=== PATIENT | female | born 1980 | race American Indian/Alaskan Native ===

== ENCOUNTER 2017-01-08 15:04 | Inpatient (IN) | payer OTHER ==
[2017-01-08] MEDS ORDERED: DiphenhydrAMINE 50 mg/ml Inj IVP STA (15:14)
[2017-01-08] MEDS ORDERED: Sodium Chloride 0.9% 1,000 ML IV STA ×2 (15:14→23:52)
[2017-01-08 15:30] VITALS: BMI 37.8
--- NOTE | 2017-01-08 15:54 | ED PDOC ---
HPI: Abdomen Time Seen by Provider: 01/08/17 15:07 Chief Complaint (Nursing): Weakness/Neurological Deficit Chief Complaint (Provider): nausea and dizziness History Per: Patient History/Exam Limitations: no limitations Onset/Duration Of Symptoms: Hrs (started 7am), Gradual, Persistent Current Symptoms Are (Timing): Still Present Location Of Pain/Discomfort: RUQ, Epigastric Quality Of Discomfort: Aching Associated Symptoms: Chills, Nausea, Vomiting (x3 (in ER as well) nonbloody nonbilious). denies: Fever, Diarrhea, Urinary Symptoms Exacerbating Factors: None Alleviating Factors: None Additional Complaint(s): Nausea and abdominal pain since this morning, with 2 episodes of vomiting. Pain similar to when she was at [facility] and diagnosed with biliary colic. Scheduled appointment with Dr Shelby. Started to feel extremely lightheaded just prior to evaluation and thought she may pass out. Then had more vomiting in ER. Reports that sometimes her migraines feel like this as well (dizziness and nausea.) Also reports that she has anemia and on first day of menses, which may also be contributing factor. Past Medical History Reviewed: Historical Data, Nursing Documentation, Vital Signs Vital Signs: Last Vital Signs Temp 98.4 F 01/10/17 12:00 Pulse 69 01/10/17 12:00 Resp 18 01/10/17 12:00 BP 128/80 01/10/17 12:00 Pulse Ox 99 01/10/17 12:00 - Medical History PMH: Anemia, Gall Bladder Disease, Seizures (in childhood) - Surgical History Surgical History: No Surg Hx - Family History Family History: States: No Known Family Hx - Social History Current smoker - smoking cessation education provided: No - Home Medications Home Medications: Ambulatory Orders Medication Instructions Recorded No Known Home Med 01/09/17 - Allergies Allergies/Adverse Reactions: Allergies Allergy/AdvReac Type Severity Reaction Status Date / Time Penicillins Allergy Verified 01/08/17 15:13 Review of Systems ROS Statement: Except As Marked, All Systems Reviewed And Found Negative (and as per HPI) Constitutional: Positive for: Weakness (generalized), Malaise Cardiovascular: Positive for: Light Headedness. Negative for: Chest Pain Gastrointestinal: Positive for: Nausea, Vomiting, Abdominal Pain. Negative for : Diarrhea, Constipation, Melena, Hematochezia, Hematemesis Neurological: Positive for: Dizziness. Negative for: Weakness (focal), Numbness , Headache Physical Exam - Reviewed Nursing Documentation Reviewed: Yes Vital Signs Reviewed: Yes - Physical Exam Appears: Positive for: Non-toxic, In Acute Distress Head Exam: Positive for: ATRAUMATIC, NORMOCEPHALIC Skin: Positive for: Warm, Dry Eye Exam: Positive for: EOMI, PERRL ENT: Negative for: Pharyngeal Erythema, Tonsillar Exudate Neck: Positive for: Painless ROM, Supple Cardiovascular/Chest: Positive for: Regular Rate, Rhythm, Chest Non Tender. Negative for: Murmur Respiratory: Positive for: Normal Breath Sounds. Negative for: Respiratory Distress Gastrointestinal/Abdominal: Positive for: Bowel Sounds, Soft, Tenderness (BUQ). Negative for: Mass, Distended, Guarding, Rebound Back: Positive for: Normal Inspection. Negative for: Decreased ROM Extremity: Positive for: Normal ROM. Negative for: Deformity Lymphatic: Negative for: Adenopathy Neurologic/Psych: Positive for: Alert. Negative for: Motor/Sensory Deficits - Laboratory Results Result Diagrams: 01/09/17 04:20 01/09/17 04:20 - ECG ECG: Positive for: Interpreted By Me ECG Rhythm: Positive for: Normal QRS, Normal ST Segment, Sinus Rhythm - Progress ED Course And Treament: Accession No. : [id number] Patient Name / ID : HALEY SINGH / [id number] Exam Date : 01/08/2017 15:49:02 ( Approved ) Study Comment : Sex / Age : F / 36Y Creator : Chuck Lepe MD Dictator : Chuck Lepe MD Carbon Lamp Cleaner : Piece Cutter : Chuck Lepe MD Approver2 : Report Date : 01/08/2017 16:29:34 My Comment : HISTORY: abd pain h.o cholelithiasis r/o cholecystitis COMPARISON: None. TECHNIQUE: Sonographic evaluation of the abdomen. FINDINGS: LIVER: Measures 17.1 cm. Slightly diffusely increased echogenicity of the liver parenchyma. Consistent with fatty infiltration. No mass. No biliary dilatation. Smooth contour. GALLBLADDER: Cholelithiasis. Minimal mural thickening to 3 mm. No pericholecystic fluid. Negative sonographic Villagomez sign. COMMON BILE DUCT: Measures 4 mm. No stones. No dilatation. PANCREAS: Poorly visualized RIGHT KIDNEY: Measures 12.7cm. Normal echogenicity. No calculus, mass, or hydronephrosis. LEFT KIDNEY: Measures 9.8cm. Normal echogenicity. No calculus, mass, or hydronephrosis. SPLEEN: Normal in size and contour. No mass. AORTA: No evidence of aneurysm. Proximal aorta poorly visualized due to overlying bowel gas. IVC: Unremarkable. OTHER FINDINGS: None. IMPRESSION: Cholelithiasis without sonographic evidence of cholecystitis. Mild fatty infiltration of the liver. Multiple evaluations over the course of 8 hours in ER and pt's symptoms persist despite observation here and IVF. DW Dr Sandhu for hospitalization for intractable dizziness and near syncope Condition: Improving,but remains with symptoms (pain improved but still feels nauseous and vomited again in ER. Zofran and pepcid ordered.) Disposition - Clinical Impression Clinical Impression: Hypokalemia, Near syncope - Disposition Disposition Time: 23:00 Condition: FAIR - Pt Status Changed To: Hospital Disposition Of: Observation - POA Present On Arrival: None
[2017-01-08 16:18] LABS: BASO % 0.5 % (0.0-2.0); EOS # 0.1 K/uL (0.0-0.7); EOS % 1.2 % (0.0-4.0); HEMATOCRIT 36.4 % (34.0-47.0); LYMPH % 36.2 % (20.0-40.0); MEAN CELL VOLUME 84.2 fl (81.0-99.0); MEAN CORPUSCULAR HEMOGLOBIN 27.9 pg (27.0-31.0); MEAN CORPUSCULAR HGB CONC 33.1 g/dL (33.0-37.0); MEAN PLATELET VOLUME 8.3 fl (7.2-11.7); MONO # 0.7 K/uL (0.0-0.8); NEUT # 4.4 K/uL (1.8-7.0); NEUT % 53.1 % (50.0-75.0); WHITE BLOOD COUNT 8.3 K/uL (4.8-10.8)
[2017-01-08 16:19] LABS: ALB/GLOB RATIO 1.1 (1.0-2.1); ALKALINE PHOSPHATASE 106 U/L (38-126); ALT/SGPT 28 U/L (9-52); AST/SGOT 28 U/L (14-36); BILIRUBIN,TOTAL 0.5 mg/dl (0.2-1.3); BLOOD UREA NITROGEN 11 mg/dl (7-17); CALCIUM 8.5 mg/dL (8.4-10.2); CARBON DIOXIDE 25 mmol/L (22-30); CHLORIDE 104 mmol/L (98-107); GFR AFRICAN-AMERICAN > 60; GLUCOSE,RANDOM 105 mg/dL (65-105); LIPASE 45 U/L (23-300); MAGNESIUM 1.7 MG/DL (1.6-2.3); PHOSPHOROUS 3.5 mg/dl (2.5-4.5); SODIUM 141 mmol/l (132-148); TOTAL PROTEIN 8.5 G/DL (6.3-8.2)
[2017-01-08 16:22] LABS: POTASSIUM 3.3 MMOL/L (3.6-5.0)
[2017-01-08 16:24] LABS: PARTIAL THROMBOPLASTIN TIME 34.2 Seconds (25.6-37.1)
--- NOTE | 2017-01-08 16:31 | US ---
HISTORY: abd pain h.o cholelithiasis r/o cholecystitis COMPARISON: None. TECHNIQUE: Sonographic evaluation of the abdomen. FINDINGS: LIVER: Measures 17.1 cm. Slightly diffusely increased echogenicity of the liver parenchyma. Consistent with fatty infiltration. No mass. No biliary dilatation. Smooth contour. GALLBLADDER: Cholelithiasis. Minimal mural thickening to 3 mm. No pericholecystic fluid. Negative sonographic Villagomez sign. COMMON BILE DUCT: Measures 4 mm. No stones. No dilatation. PANCREAS: Poorly visualized RIGHT KIDNEY: Measures 12.7cm. Normal echogenicity. No calculus, mass, or hydronephrosis. LEFT KIDNEY: Measures 9.8cm. Normal echogenicity. No calculus, mass, or hydronephrosis. SPLEEN: Normal in size and contour. No mass. AORTA: No evidence of aneurysm. Proximal aorta poorly visualized due to overlying bowel gas. IVC: Unremarkable. OTHER FINDINGS: None. IMPRESSION: Cholelithiasis without sonographic evidence of cholecystitis. Mild fatty infiltration of the liver.
[2017-01-08] MEDS ORDERED: K-Lyte 25meq EF Tab PO ONE ×2 (16:43→17:56)
[2017-01-08] MEDS ORDERED: DiphenhydrAMINE 50 mg/ml Inj ONE (16:48)
[2017-01-08 16:54] LABS: RBC URINE 114 /hpf (0-3); URINE BILIRUBIN NEGATIVE (NEGATIVE); URINE BLOOD LARGE (NEGATIVE); URINE COLOR YELLOW (YELLOW); URINE GLUCOSE (UA) NEG (Normal); URINE KETONE NEGATIVE (NEGATIVE); URINE LEUKOCYTE ESTERASE NEG Leu/uL (Negative); URINE PROTEIN 100 mg/dL (NEGATIVE); URINE UROBILINOGEN 0.2-1.0 mg/dL (0.2-1.0); WBC URINE 3 /hpf (0-5)
[2017-01-08] MEDS: Dextrose 5%/Lactated Ringer's 1,000 ML IV SCH (19:25)
[2017-01-08] MEDS ORDERED: Potassium Chl 20 mEq in NS 1,000 ML IV STA (23:56)
[2017-01-09] MEDS: Potassium Chl 20 mEq in NS 1,000 ML IV SCH ×2 (04:05→16:22)
[2017-01-09 05:46] LABS: HEMATOCRIT 35.9 % (34.0-47.0); MEAN CELL VOLUME 83.5 fl (81.0-99.0); MEAN CORPUSCULAR HEMOGLOBIN 27.8 pg (27.0-31.0); MEAN CORPUSCULAR HGB CONC 33.3 g/dL (33.0-37.0); RED CELL DISTRIBUTION WIDTH 12.9 % (11.5-14.5); WHITE BLOOD COUNT 11.4 K/uL (4.8-10.8)
[2017-01-09 05:59] LABS: BLOOD UREA NITROGEN 8 mg/dl (7-17); CALCIUM 8.4 mg/dL (8.4-10.2); CARBON DIOXIDE 26 mmol/L (22-30); CHLORIDE 103 mmol/L (98-107); GFR AFRICAN-AMERICAN > 60; GLUCOSE,RANDOM 109 mg/dL (65-105); POTASSIUM 3.7 MMOL/L (3.6-5.0); SODIUM 138 mmol/l (132-148)
--- NOTE | 2017-01-09 10:12 | US ---
PROCEDURE: Duplex ultrasound of the carotid and vertebral arteries. HISTORY: Near Syncope COMPARISON: None available. TECHNIQUE: Grayscale and duplex Doppler evaluation of the cervical carotid and vertebral arteries were performed. The common carotid, carotid bifurcations and cervical ICA and proximal ECA were evaluated. The vertebral arteries were evaluated for gross patency and direction. FINDINGS: There is bilateral intimal thickening. RIGHT CAROTID ARTERIES: Common Carotid Artery: Normal. Maximal flow velocity of 87.3 cm/s. Carotid Bifurcation: Normal. Internal Carotid Artery:Normal. Maximal flow velocity of 101.6 cm/s. External Carotid Artery (proximal branches): Normal. Maximal flow velocity of 98.4 cm/s. ICA/CCA Ratio: 1.2 LEFT CAROTID ARTERIES: Common Carotid Artery: Normal. Maximal flow velocity of 125.3 cm/s. Carotid Bifurcation: Normal. Internal Carotid Artery:Normal. Maximal flow velocity of 79.5 cm/s. External Carotid Artery (proximal branches): Normal. Maximal flow velocity of 79.8 cm/s. ICA/CCA Ratio: 0.6 VERTEBRAL ARTERIES: Right Vertebral Artery: Patent. Antegrade flow. Left Vertebral Artery: Patent. Antegrade flow. OTHER FINDINGS: None. IMPRESSION: No evidence of hemodynamically significant stenosis by peak systolic velocity criteria.
--- NOTE | 2017-01-09 10:59 | CARD ---
APPROVED REPORT EKG Measurement Heart [id number] <Conclusion> Normal sinus rhythm Normal ECG
--- NOTE | 2017-01-09 15:11 | CT ---
PROCEDURE: CT HEAD WITHOUT CONTRAST. HISTORY: Syncope COMPARISON: None available. TECHNIQUE: Axial computed tomography images were obtained through the head/brain without intravenous contrast. Radiation dose: Total exam DLP = 873.30 mGy-cm. This CT exam was performed using one or more of the following dose reduction techniques: Automated exposure control, adjustment of the mA and/or kV according to patient size, and/or use of iterative reconstruction technique. FINDINGS: HEMORRHAGE: No intracranial hemorrhage. BRAIN: Avila-white matter differentiation is preserved. There is no mass, mass effect or abnormal extra-axial fluid collection. There is no territorial infarction. VENTRICLES: The ventricles are normal in size, shape and configuration. CALVARIUM: The skull base and calvarium are normal. PARANASAL SINUSES: Predominantly clear. MASTOID AIR CELLS: Predominantly clear. OTHER FINDINGS: None. IMPRESSION: No acute intracranial abnormality.
[2017-01-09] MEDS: Dextrose 5%/Lactated Ringer's 1,000 ML IV SCH (16:21)
--- NOTE | 2017-01-09 19:57 | HP ---
HISTORY OF PRESENT ILLNESS: Ms. Estrada is a 36-year-old female who was admitted via the emergency room because of an episode of dizziness, feeling like she was going to pass out, associated with nausea, vomiting x2 episodes. She was admitted to the telemetry for workup and therapy. She had similar episode at [facility] in [place] recently and had workup which included MRI of the brain which she said was nonrevealing. PAST MEDICAL HISTORY: She also has a past medical history of seizures in the past but is on no medications for it, and has recurrent migraine headaches; also has biliary colic and is scheduled to follow up with Dr. Shelby for cholecystectomy. FAMILY HISTORY: Remarkable for grandparents having heart disease. 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 PHYSICAL EXAMINATION: GENERAL: The patient is alert and oriented. VITAL SIGNS: Blood pressure 148/93 with a pulse of 74, respiratory rate 16. She is afebrile. O2 sat 100% on room air. SKIN: Shows fair turgor. HEENT: Pupils equal, reactive to light and accommodation. Mouth shows fair hygiene. JVP flat. LUNGS: Clear. HEART: Regular. ABDOMEN: Soft, nontender, no organomegaly. EXTREMITIES: Show no edema or cyanosis. CENTRAL NERVOUS SYSTEM: The patient indicates that she no longer has dizziness or headaches, and feels much better with IV hydration. LABORATORY DATA: Remarkable for WBC of 8.3, hemoglobin 12.0, platelet count of 296,000. Sodium 141; potassium 3.3, corrected to 3.7; BUN of 11; creatinine 0.7; lipase 45. DIAGNOSTIC STUDIES: CAT scan of the brain is pending. Ultrasound of the abdomen is remarkable for gallstones. IMPRESSION: Near syncopal episode with dizziness, questionable etiology, nausea, vomiting, probably secondary to gallbladder disease. PLAN: Neurology evaluation. IV hydration. If cleared by Neurology, we would discharge the patient and have her follow up as an outpatient. Hardik Sandhu MD
--- NOTE | 2017-01-09 20:48 | CP.PCM.CON ---
History of Present Illness - History of Present Illness History of Present Illness: Chief Complaint (Nursing): Weakness/Neurological Deficit Chief Complaint (Provider): nausea and dizziness History Per: Patient History/Exam Limitations: no limitations Onset/Duration Of Symptoms: Hrs (started 7am), Gradual, Persistent Current Symptoms Are (Timing): Still Present Location Of Pain/Discomfort: RUQ, Epigastric Quality Of Discomfort: Aching Associated Symptoms: Chills, Nausea, Vomiting (x3 (in ER as well) nonbloody nonbilious). denies: Fever, Diarrhea, Urinary Symptoms Exacerbating Factors: None Alleviating Factors: None Additional Complaint(s): Today she was feeling migraine headache, abdominal pain, she was about to faint. Nausea and abdominal pain since this morning, with 2 episodes of vomiting. Pain similar to when she was at [facility] and diagnosed with biliary colic. Scheduled appointment with Dr Shelby. Started to feel extremely lightheaded just prior to evaluation and thought she may pass out. Then had more vomiting in ER. Reports that sometimes her migraines feel like this as well (dizziness and nausea.) Also reports that she has anemia and on first day of menses, which may also be contributing factor. History of recurrent migraine, history of feeling about to faint, which looks like a near syncopal spell. Location Of Pain/Discomfort: RUQ, Epigastric Quality Of Discomfort: Aching Associated Symptoms: Chills, Nausea, Vomiting (x3 (in ER as well) nonbloody nonbilious). denies: Fever, Diarrhea, Urinary Symptoms Exacerbating Factors: None Alleviating Factors: None Additional Complaint(s): She has migraine headache 3 to 4 times in a month, each lasts for 4 hours up to the whole day and night. Her headache is throbbing occurring at the frontal area, mainly at the left eye brow. It is relieved by sleep and rest in a dark quiet room and analgesics. Her 1st seizure was at the age of 3 years and the last seizure was at the age of 11 and she was treated by Tegretol. There is history of a head trauma that caused her LOC that preceded her seizures. Seizures were preceded with an aura of feeling hot. they consisted of LOC, LOP, duration 1 minute, post ictally sleepy for a while. Past Medical History Reviewed: Historical Data, Nursing Documentation, Vital Signs Vital Signs: Last Vital Signs Temp Pulse 74 10/30/17 15:10 Resp 16 01/08/17 15:10 BP 148/93 H 01/08/17 15:10 Pulse Ox 100 01/08/17 15:10 Medical History PMH: Anemia, Gall Bladder Disease, Seizures (in childhood), Migraine headache - Surgical History Surgical History: No Surg Hx - Family History Family History: States: Migraine Headache, seizures, cardiac problems, CVA. - Social History Current smoker - smoking cessation education provided: No - Allergies Allergies/Adverse Reactions: Allergies Allergy/AdvReac Type Severity Reaction Status Date / Time Penicillins Allergy Verified 01/08/17 15:13 Review of Systems ROS Statement: Except As Marked, All Systems Reviewed And Found Negative (and as per HPI) Constitutional: Positive for: Weakness (generalized), Malaise Cardiovascular: Positive for: Light Headedness. Negative for: Chest Pain Gastrointestinal: Positive for: Nausea, Vomiting, Abdominal Pain. Negative for : Diarrhea, Constipation, Melena, Hematochezia, Hematemesis Neurological: Positive for: Dizziness. Negative for: Weakness (focal), Numbness , Headache Physical Exam - Reviewed Nursing Documentation Reviewed: Yes Vital Signs Reviewed: Yes - Physical Exam Appears: Positive for: Non-toxic, In Acute Distress Head Exam: Positive for: ATRAUMATIC, NORMOCEPHALIC Skin: Positive for: Warm, Dry Eye Exam: Positive for: EOMI, PERRL ENT: Negative for: Pharyngeal Erythema, Tonsillar Exudate Neck: Positive for: Painless ROM, Supple Cardiovascular/Chest: Positive for: Regular Rate, Rhythm, Chest Non Tender. Negative for: Murmur Respiratory: Positive for: Normal Breath Sounds. Negative for: Respiratory Distress Gastrointestinal/Abdominal: Positive for: Bowel Sounds, Soft, Tenderness (BUQ). Negative for: Mass, Distended, Guarding, Rebound Back: Positive for: Normal Inspection. Negative for: Decreased ROM Extremity: Positive for: Normal ROM. Negative for: Deformity Lymphatic: Negative for: Adenopathy Neurologic/Psych: Positive for: Alert. Negative for: Motor/Sensory Deficits ECG Rhythm: Positive for: Normal QRS, Normal ST Segment, Sinus Rhythm - Progress ED Course And Treament: IMPRESSION of US Abdomen: Cholelithiasis without sonographic evidence of cholecystitis. Mild fatty infiltration of the liver. IMPRESSION of CT Brain: No acute intracranial abnormality. Negative Carotid Doppler Vitamin D level is very low 13.3 high Urine RBCs 114 Past Patient History - Past Medical History & Family History Past Medical History?: No - Past Social History Smoking Status: Never Smoked - CARDIAC Hx Cardiac Disorders: No - PULMONARY Hx Respiratory Disorders: No - NEUROLOGICAL Hx Neurological Disorder: Yes Hx Parkinson's Disease: Yes - HEENT Hx HEENT Problems: No - RENAL Hx Chronic Kidney Disease: No - ENDOCRINE/METABOLIC Hx Endocrine Disorders: No - HEMATOLOGICAL/ONCOLOGICAL Hx Blood Disorders: Yes Hx AIDS: No Hx Anemia: Yes Hx Human Immunodeficiency Virus (HIV): No - INTEGUMENTARY Hx Dermatological Problems: No - MUSCULOSKELETAL/RHEUMATOLOGICAL Hx Musculoskeletal Disorders: No Hx Falls: No - GASTROINTESTINAL Hx Gastrointestinal Disorders: Yes Hx Gall Bladder Disease: Yes - GENITOURINARY/GYNECOLOGICAL Hx Genitourinary Disorders: No - PSYCHIATRIC Hx Psychophysiologic Disorder: No Hx Substance Use: No - SURGICAL HISTORY Hx Surgeries: No - ANESTHESIA Hx Anesthesia: No Meds Allergies/Adverse Reactions: Allergies Allergy/AdvReac Type Severity Reaction Status Date / Time Penicillins Allergy Verified 01/08/17 15:13 - Medications Medications: Current Medications Acetaminophen (Tylenol 325mg Tab) 650 mg PO Q4 PRN PRN Reason: Headache Last Admin: 01/09/17 16:20 Dose: 650 mg Physical Exam - Neurological Exam Additional comments: Overweight to Obese, very pleasant to talk to, 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 She has migraine headache 3 to 4 times in a month, each lasts for 4 hours up to the whole day and night. Her headache is throbbing occurring at the frontal area, mainly at the left eye brow. It is relieved by sleep and rest in a dark quiet room and analgesics. Her 1st seizure was at the age of 3 years and the last seizure was at the age of 11 and she was treated by Tegretol. There is history of a head trauma that caused her LOC that preceded her seizures. Seizures were preceded with an aura of feeling hot. they consisted of LOC, LOP, duration 1 minute, post ictally sleepy for a while. Mental status: Normal cognition, awake, alert, oriented X 3 Normal memory X 3, fluent coherent speech Cranial Nerves II to XII: No deficits Motor: Normal tone, power, muscle bulk DTR 0 to 1/4 toes are down going by plantar stimulation. Sensory: No deficits Cerebellar: Normal FNT, HST Results - Vital Signs Recent Vital Signs: Last Vital Signs Temp 98.7 F 01/09/17 20:13 Pulse 77 01/09/17 20:13 Resp 14 01/09/17 20:13 BP 127/81 01/09/17 20:13 Pulse Ox 97 01/09/17 20:13 - Labs Result Diagrams: 01/09/17 04:20 01/09/17 04:20 Labs: Laboratory Results - last 24 hr 01/09/17 01/09/17 01/09/17 04:20 04:20 07:30 WBC 11.4 H RBC 4.30 Hgb 11.9 L Hct 35.9 MCV 83.5 MCH 27.8 MCHC 33.3 RDW 12.9 Plt Count 341 Sodium 138 Potassium 3.7 Chloride 103 Carbon Dioxide 26 Anion Gap 12 BUN 8 Creatinine 0.6 L Est GFR ( Amer) > 60 Est GFR (Non-Af Amer) > 60 Random Glucose 109 H Calcium 8.4 25-OH Vitamin D Total Blood Type Confirm O POSITIVE 01/09/17 10:19 WBC RBC Hgb Hct MCV MCH MCHC RDW Plt Count Sodium Potassium Chloride Carbon Dioxide Anion Gap BUN Creatinine Est GFR ( Amer) Est GFR (Non-Af Amer) Random Glucose Calcium 25-OH Vitamin D Total 13.3 L Blood Type Confirm Assessment & Plan (1) Seizures Assessment and Plan: Old History of seizures not receiving treatment for it since many years Near syncopal spell Status: Acute (2) Hypokalemia Status: Acute (3) Hematuria Assessment and Plan: She has her period now Status: Acute (4) Cholecystitis with cholelithiasis Status: Acute (5) Vitamin D deficiency Status: Acute (6) Near syncope Assessment and Plan: With Abdominal discomfort and gall bladder stone, R/O Vasovagal spell. Status: Acute (7) Vaso vagal episode Assessment and Plan: R/O Vasovagal episode, as she has abdominal pain and discomfort and gall bladder stones. Status: Acute (8) Migraine Assessment and Plan: Headache precautions Status: Acute
[2017-01-09] MEDS ORDERED: Ergocalciferol 50,000 Intl Units Cap PO SCH (22:15)
[2017-01-10 05:24] VITALS: TEMP 98.4
[2017-01-10 08:02] VITALS: RESP 18
--- NOTE | 2017-01-10 09:43 | CP.PCM.DIS ---
Provider - Provider Date of Admission: 01/09/17 20:12 Attending physician: Hardik Sandhu MD Time Spent in preparation of Discharge (in minutes): 30 Diagnosis - Discharge Diagnosis (1) Cholecystitis with cholelithiasis Status: Acute (2) Hypokalemia Status: Acute (3) Migraine Status: Acute (4) Near syncope Status: Acute (5) Seizures Status: Acute (6) Vaso vagal episode Status: Acute (7) Vitamin D deficiency Status: Acute Hospital Course - Lab Results Lab Results: Most Recent Lab Values WBC 11.4 K/uL (4.8-10.8) H 01/09/17 04:20 RBC 4.30 Mil/uL (3.80-5.20) 01/09/17 04:20 Hgb 11.9 g/dL (12.0-16.0) L 01/09/17 04:20 Hct 35.9 % (34.0-47.0) 01/09/17 04:20 MCV 83.5 fl (81.0-99.0) 01/09/17 04:20 MCH 27.8 pg (27.0-31.0) 01/09/17 04:20 MCHC 33.3 g/dL (33.0-37.0) 01/09/17 04:20 RDW 12.9 % (11.5-14.5) 01/09/17 04:20 Plt Count 341 K/uL (130-400) 01/09/17 04:20 MPV 8.3 fl (7.2-11.7) 01/08/17 15:35 Neut % (Auto) 53.1 % (50.0-75.0) 01/08/17 15:35 Lymph % (Auto) 36.2 % (20.0-40.0) 01/08/17 15:35 [place] % (Auto) 9.0 % (0.0-10.0) 01/08/17 15:35 Eos % (Auto) 1.2 % (0.0-4.0) 01/08/17 15:35 Baso % (Auto) 0.5 % (0.0-2.0) 01/08/17 15:35 Neut # 4.4 K/uL (1.8-7.0) 01/08/17 15:35 Lymph # 3.0 K/uL (1.0-4.3) 01/08/17 15:35 [place]ye # 0.7 K/uL (0.0-0.8) 01/08/17 15:35 Eos # 0.1 K/uL (0.0-0.7) 01/08/17 15:35 Baso # 0.0 K/uL (0.0-0.2) 01/08/17 15:35 PT 12.2 Seconds (9.8-13.1) 01/08/17 15:35 INR 1.1 (0.9-1.2) 01/08/17 15:35 APTT 34.2 Seconds (25.6-37.1) 01/08/17 15:35 Sodium 138 mmol/l (132-148) 01/09/17 04:20 Potassium 3.7 MMOL/L (3.6-5.0) 01/09/17 04:20 Chloride 103 mmol/L (98-107) 01/09/17 04:20 Carbon Dioxide 26 mmol/L (22-30) 01/09/17 04:20 Anion Gap 12 (10-20) 01/09/17 04:20 BUN 8 mg/dl (7-17) 01/09/17 04:20 Creatinine 0.6 mg/dL (0.7-1.2) L 01/09/17 04:20 Est GFR ( Amer) > 60 01/09/17 04:20 Est GFR (Non-Af Amer) > 60 01/09/17 04:20 POC Glucose (mg/dL) 108 mg/dL (65-110) 01/08/17 15:13 Random Glucose 109 mg/dL (65-105) H 01/09/17 04:20 Lactic Acid 1.3 MMOL/L (0.7-2.1) 01/08/17 15:50 Calcium 8.4 mg/dL (8.4-10.2) 01/09/17 04:20 Phosphorus 3.5 mg/dl (2.5-4.5) 01/08/17 15:35 Magnesium 1.7 MG/DL (1.6-2.3) 01/08/17 15:35 Total Bilirubin 0.5 mg/dl (0.2-1.3) 01/08/17 15:35 AST 28 U/L (14-36) 01/08/17 15:35 ALT 28 U/L (9-52) 01/08/17 15:35 Alkaline Phosphatase 106 U/L (38-126) 01/08/17 15:35 Total Protein 8.5 G/DL (6.3-8.2) H 01/08/17 15:35 Albumin 4.4 g/dL (3.5-5.0) 01/08/17 15:35 Globulin 4.1 gm/dL (2.2-3.9) H 01/08/17 15:35 Albumin/Globulin Ratio 1.1 (1.0-2.1) 01/08/17 15:35 Lipase 45 U/L (23-300) 01/08/17 15:35 25-OH Vitamin D Total 13.3 NG/ML (30.0-100.0) L 01/09/17 10:19 Urine Color Yellow (YELLOW) 01/08/17 16:42 Urine Clarity Slighty-cloudy (Clear) 01/08/17 16:42 Urine pH 7.0 (5.0-8.0) 01/08/17 16:42 Ur Specific [place] 1.017 (1.003-1.030) 01/08/17 16:42 Urine Protein 100 mg/dL (NEGATIVE) 01/08/17 16:42 Urine Glucose (UA) Neg mg/dL (Normal) 01/08/17 16:42 Urine Ketones Negative mg/dL (NEGATIVE) 01/08/17 16:42 Urine Blood Large (NEGATIVE) 01/08/17 16:42 Urine Nitrate Negative (NEGATIVE) 01/08/17 16:42 Urine Bilirubin Negative (NEGATIVE) 01/08/17 16:42 Urine Urobilinogen 0.2-1.0 mg/dL (0.2-1.0) 01/08/17 16:42 Ur Leukocyte Esterase Neg Mark/uL (Negative) 01/08/17 16:42 Urine RBC (Auto) 114 /hpf (0-3) H 01/08/17 16:42 Urine Microscopic WBC 3 /hpf (0-5) 01/08/17 16:42 Ur Squamous Epith Cells 2 /hpf (0-5) 01/08/17 16:42 Blood Type O POSITIVE 01/08/17 16:02 Blood Type Confirm O POSITIVE 01/09/17 07:30 Antibody Screen Negative 01/08/17 16:02 BBK History Checked No verified bt 01/08/17 16:02 - Hospital Course Hospital Course: FEELS BETTER NO RECURRENCE OF NEAR SYNCOPE Discharge Exam - Head Exam Head Exam: ATRAUMATIC, NORMOCEPHALIC - Eye Exam Eye Exam: EOMI, Normal appearance, PERRL Pupil Exam: NORMAL ACCOMODATION, PERRL - GI/Abdominal Exam GI & Abdominal Exam: Normal Bowel Sounds - Rectal Exam Rectal Exam: NORMAL INSPECTION - Neurological Exam Neurological exam: Alert, CN II-XII Intact, Normal Gait, Oriented x3, Reflexes Normal - Psychiatric Exam Psychiatric exam: Normal Affect, Normal Mood - Skin Skin Exam: Dry, Intact, Normal Color, Warm Discharge Plan - Follow Up Plan Condition: FAIR Disposition: HOME/ ROUTINE Patient education suggested?: Yes Additional Instructions: DISCHARGE TODAY FOLLOW UP WITH NEUROLOGIST--DR ASH
--- NOTE | 2017-01-10 12:37 | CP.PCM.PCO ---
Assessment/Plan - Assessment and Plan (Free Text) Assessment: Patient stayed 2nd overnight pending neurology evaluation and pending reevaluation of weakness dizziness and nausea.
[2017-01-10 12:44] VITALS: BP 128/80; PULSE 69; O2SAT 99
--- NOTE | 2017-01-10 21:29 | CP.PCM.PN ---
Subjective - Date & Time of Evaluation Date of Evaluation: 01/10/17 Time of Evaluation: 10:00 - Subjective Subjective: Patient is doing better, she will be followed as an out patient. Headache precautions were explained to the patient. She will be seen by surgery on 01/15/2017 for her gall bladder stones. Diagnosis is Migraine Headache, Vasovagal episode 2ry to Gall bladder stones related abdominal discomfort. She will be followed as an out patient. She is receiving Vitamin D and Oscal for her severe Vitamin D Deficiency. Objective - Vital Signs/Intake and Output Vital Signs (last 24 hours): Temp Pulse Resp BP Pulse Ox 98.4 F 69 18 128/80 99 01/10/17 12:00 01/10/17 12:00 01/10/17 12:00 01/10/17 12:00 01/10/17 12:00 - Labs Labs: 01/09/17 04:20 01/09/17 04:20 PT 12.2 Seconds (9.8-13.1) 01/08/17 15:35 INR 1.1 (0.9-1.2) 01/08/17 15:35 APTT 34.2 Seconds (25.6-37.1) 01/08/17 15:35 Assessment and Plan (1) Seizures Status: Acute (2) Hypokalemia Status: Acute (3) Hematuria Status: Acute (4) Cholecystitis with cholelithiasis Status: Acute (5) Vitamin D deficiency Status: Acute (6) Near syncope Status: Acute (7) Vaso vagal episode Status: Acute (8) Migraine Status: Acute
--- NOTE | 2017-01-11 08:40 | EEG ---
The record is obtained for a history of migraine headache and near syncopal spell. The patient has an old history of seizures and is on no medicine for seizures now. The record is obtained while the patient was awake and drowsy. The record was symmetrically equal on both sides with velocity of 8 to 9 cycles per second. The waves are fairly formed, fairly organized in the posterior distribution. Moderate amplitude, reactive to opening by attenuation.. There were no abnormal discharges. No spike, no polyspike, no sharp waves. No focal slowing or paroxysmal discharge. There were no changes with photic stimulation. The hyperventilation was omitted. There were periods of drowsiness during which attenuation and slowing of the record were seen and theta waves are seen. There are no periods of sleep. There were eye movement artifact, electrode artifact, and muscle movement artifact. IMPRESSION: In sum, this is a normal awake and drowsy EEG. Clinical correlation is recommended. Jose Agudelo MD
== END 2017-01-10 14:30 | disposition home or self-care (01) | DRG 446 ==
LOC: H.ER 15:04 → H.ERHOLD 23:52 → H.TEL 01-09 01:30 → OBSVTOIN 01-09 20:12
PROVIDERS: ADMIT Internal Medicine Pulmonary Disease; ATTEND Internal Medicine Pulmonary Disease
DX: K80.10 Calculus of gallbladder with chronic cholecystitis without obstruction (principal); E55.9 Vitamin D deficiency, unspecified; E87.6 Hypokalemia; G43.909 Migraine, unspecified, not intractable, without status migrainosus; R55 Syncope and collapse; Z88.0 Allergy status to penicillin; G40.909 Epilepsy, unspecified, not intractable, without status epilepticus